=== PATIENT | male | born 1985 | race Caucasian/White ===

== ENCOUNTER 2022-03-04 15:42 | Emergency (ER) | payer BC, SELFPAY ==
[2022-03-04 16:10] VITALS: BP 168/96; PULSE 94; RESP 16; TEMP 36.7; O2SAT 99
[2022-03-04 16:16] LABS: Basophils Percent Auto 0.3 % (0.2-1.2); Eosinophils Absolute Auto 0.1 K/mm3 (0-0.3); Eosinophils Percent Auto 0.7 % (0-4.4); Hematocrit 40.1 % (42.0-52.0); Hemoglobin 13.4 g/dL (14.0-18.0); Immature Granulocyte Absolute 0.02 K/mm3 (0.00-0.031); Immature Granulocyte Percent A 0.2 % (0-0.5); Lymphocytes Percent Auto 16.4 % (18.3-44.2); Mean Corpuscular HGB Conc 33.4 g/dl (32-36); Mean Corpuscular Volume 89.7 fl (80-100); Mean Platelet Volume 10.6 fl (7.4-10.4); Monocytes Absolute Auto 0.7 K/mm3 (0.1-0.6); Monocytes Percent Auto 7.2 % (2.6-8.5); Neutrophils Absolute Auto 6.9 K/mm3 (1.3-6.7); Neutrophils Percent Auto 75.2 % (45.5-73.1); Platelet Count Result 239 k/mm3 (150-375); Red Blood Count 4.47 M/mm3 (4.6-6.20); Red Cell Distribution Width 12.4 % (11.5-14.5); White Blood Count 9.2 K/mm3 (4.5-10.0)
[2022-03-04 16:32] LABS: Alanine Aminotransferase 26 U/L (6-50); Albumin Level 4.6 g/dL (3.5-5.1); Alkaline Phosphatase 54 U/L (38-126); Anion Gap 11 mmol/L (8-16); Aspartate Amino Transferase 25 U/L (17-59); Bilirubin,Total 0.4 mg/dL (0.2-1.3); Blood Urea Nitrogen 17 mg/dL (9-20); Calcium 9.1 mg/dL (8.4-10.2); Carbon Dioxide 25 mmol/L (22-30); Chloride 102 mmol/L (98-107); Estimated CRCL calculation 120 ml/min; Estimated Glomerular Filt Rate > 60; Glucose 127 mg/dL (65-110); Potassium 4.2 mmol/L (3.4-5.0); Sodium 138 mmol/L (137-145)
--- NOTE | 2022-03-04 17:36 | ED.GENADULT ---
HPI - General Adult General Chief complaint: Back Pain/Injury Stated complaint: LEFT FLANK PAIN Time Seen by Provider: 03/04/22 17:23 History of Present Illness HPI narrative: 37-year-old male history of gouty arthritis presents to the emergency room for multiple complaints. Patient states that he began experiencing a painful rash to his left flank radiates around to his abdomen. Patient denies any injury or trauma. Denies any dysuria or urinary retention. No history of kidney stones. Patient also complaining of generalized swelling to his left ankle. Denies any known injury or trauma. Believes the swelling to his left ankle is due to gouty arthritis flare. Has been taking [id number] anti-inflammatories with minimal relief. Related Data Allergies Allergy/AdvReac Type Severity Reaction Status Date / Time No Known Allergies Allergy Verified 03/04/22 17:28 Review of Systems Review of Systems: CONSTITUTIONAL: Denies fever, chills, or sweats. EYES: Denies visual changes, redness, or discharge. ENT: Denies rhinorrhea, congestion, sore throat, or otalgia. CARDIOVASCULAR: Denies chest pain, palpitations, or edema. RESPIRATORY: Denies cough or dyspnea. GASTROINTESTINAL: Denies abdominal pain, nausea, vomiting, or diarrhea. GENITOURINARY: Denies dysuria or hematuria. SKIN: Reports rash to left flank MUSCULOSKELETAL: Reports swelling to left ankle NEUROLOGIC: Denies headache, numbness, dizziness, or weakness. PSYCHIATRIC: Denies anxiety or depression. Exam Narrative: GENERAL: Well-appearing, well-nourished, no physical limitations, and in no acute distress. HEAD: Normocephalic, atraumatic. EYES: Conjunctivae normal, PERRLA and EOMI. CHEST: Clear to auscultation. No respiratory distress. No wheezes rales or rhonchi. HEART: Regular rate and rhythm. No murmur heard. Normal peripheral pulses. ABDOMEN: Soft, nontender, nondistended, normal active bowel sounds. BACK: Left CVA tenderness EXTREMITIES: Left ankle: Diffuse nonpitting edema. Full range of motion. No bony abnormality. Neurovascular intact distally. SKIN: Erythematous papulovesicular rash to the left lumbar area extending into the flank following a dermatomal pattern NEURO: No focal deficits. Alert and oriented x3. MAEW. CN's II-XI intact bilaterally, normal gait PSYCH: Cooperative. Normal mood and affect. Course Vital Signs Vital signs: Vital Signs Temperature 36.7 C 03/04/22 16:10 Pulse Rate 94 03/04/22 16:10 Respiratory Rate 16 03/04/22 16:10 Blood Pressure 168/96 H 03/04/22 16:10 Pulse Oximetry 99 03/04/22 16:10 Temperature 36.7 C 03/04/22 16:10 Pulse Rate 94 03/04/22 16:10 Respiratory Rate 16 03/04/22 16:10 Blood Pressure 168/96 H 03/04/22 16:10 Pulse Oximetry 99 03/04/22 16:10 Medical Decision Making Vital Signs Vital Signs: Vital Signs Temperature 36.7 C 03/04/22 16:10 Pulse Rate 94 03/04/22 16:10 Respiratory Rate 16 03/04/22 16:10 Blood Pressure 168/96 H 03/04/22 16:10 Pulse Oximetry 99 03/04/22 16:10 Temperature 36.7 C 03/04/22 16:10 Pulse Rate 94 03/04/22 16:10 Respiratory Rate 16 03/04/22 16:10 Blood Pressure 168/96 H 03/04/22 16:10 Pulse Oximetry 99 03/04/22 16:10 Lab Data Result diagrams: 03/04/22 16:08 03/04/22 16:08 Labs: Lab Results 03/04/22 03/04/22 Range/Units 16:08 16:08 WBC 9.2 (4.5-10.0) K/mm3 RBC 4.47 L (4.6-6.20) M/mm3 Hgb 13.4 L (14.0-18.0) g/dL Hct 40.1 L (42.0-52.0) % MCV 89.7 (80-100) fl MCH 30.0 (26-34) pg MCHC 33.4 (32-36) g/dl RDW 12.4 (11.5-14.5) % Plt Count 239 (150-375) k/mm3 MPV 10.6 H (7.4-10.4) fl Immature Gran % (Auto) 0.2 (0-0.5) % Neut % (Auto) 75.2 H (45.5-73.1) % Lymph % (Auto) 16.4 L (18.3-44.2) % [place] % (Auto) 7.2 (2.6-8.5) % Eos % (Auto) 0.7 (0-4.4) % Baso % (Auto) 0.3 (0.2-1.2) % Lymph # (Auto) 1.50 (0.9-3.2) K/mm3 Mon
[2022-03-04 17:41] LABS: Appearance Urine Clear (Clear); Bilirubin Urine Negative (Negative); Blood Urine Negative (Negative); Color Urine Yellow (Yellow); Glucose Urine UA Negative (Negative); Ketones Urine Negative (Negative); Leukocyte Esterase Ur Negative LEU/UL (Negative); Nitrate Urine Negative (Negative); Protein Urine Negative (Negative); Urobilinogen Urine 0.2 mg/dL (<2.0)
[2022-03-04 17:45] LABS: Mucus Urine Rare /lpf; RBC Urine 0-2 /hpf (0-2); WBC Urine 0-3 /hpf
[2022-03-04 17:46] LABS: Add Urine Microscopic? NO
== END 2022-03-04 17:55 | disposition home or self-care (01) ==
LOC: ANHED 18:12
PROVIDERS: Emergency Medicine; Emergency Provider Nurse Practitioner Family
DX: B02.9 Zoster without complications (principal); M10.9 Gout, unspecified
CPT/HCPCS: 36415; 80053; 81003; 85025; 96372; 99283; J1100

== ENCOUNTER 2022-10-08 17:05 | Emergency (ER) | payer BC, SELFPAY ==
[2022-10-08 17:10] VITALS: BP 156/77; PULSE 79; RESP 15; TEMP 37.5; O2SAT 100
--- NOTE | 2022-10-08 17:30 | ED.GENADULT ---
HPI - General Adult General Chief complaint: Skin/Abscess/Foreign Body Stated complaint: back pain Time Seen by Provider: 10/08/22 17:23 Source: patient Mode of arrival: ambulatory Limitations: no limitations History of Present Illness HPI narrative: This is a 37-year-old male who presents to the ED with chief complaint of left-sided back pain and rash x3 days. States the pain has been present for the past 3 days but rash developed yesterday. He reports it is only on the left side of his back. Denies any further site of pain or rash. States that he had a shingles rash about a month ago in the right lower back. He took valacyclovir at that time and had great relief. He does note that he had tonsillitis recently and took amoxicillin for this. Otherwise no new medications or skin exposures. Denies fevers, chills. Related Data Allergies Allergy/AdvReac Type Severity Reaction Status Date / Time No Known Allergies Allergy Verified 03/04/22 17:28 Review of Systems Review of Systems: CONSTITUTIONAL: Denies fever, chills, or sweats. EYES: Denies visual changes, redness, or discharge. ENT: Denies rhinorrhea, congestion, sore throat, or otalgia. CARDIOVASCULAR: Denies chest pain, palpitations, or edema. RESPIRATORY: Denies cough or dyspnea. GASTROINTESTINAL: Denies abdominal pain, nausea, vomiting, or diarrhea. GENITOURINARY: Denies dysuria or hematuria. SKIN: See HPI MUSCULOSKELETAL: See HPI NEUROLOGIC: Denies headache, numbness, dizziness, or weakness. PSYCHIATRIC: Denies anxiety or depression. Exam Narrative: GENERAL: Well-appearing, well-nourished, and in no acute distress. HEAD: Normocephalic, atraumatic. EYES: PERRLA and EOMI. ENT: Nares clear, no rhinorrhea or epistaxis. Mucous membranes moist. Oropharynx without tonsillar hypertrophy exudate or other lesions. NECK: Supple. No adenopathy or masses. CHEST: No respiratory distress. Clear to auscultation. No wheezes rales or rhonchi HEART: Regular rate and rhythm. No murmur heard. Normal peripheral pulses. ABDOMEN: Soft, nontender, nondistended, normal active bowel sounds. MSK: No midline lumbar spinal tenderness. Normal range of motion. No edema. SKIN: Dermatomal rash to the left lower back. Minimal tenderness. No vesicles. NEURO: Alert and oriented x3. No focal deficits. PSYCH: Normal mood and affect. Course Vital Signs Vital signs: Vital Signs Temperature 99.5 F 10/08/22 17:10 Pulse Rate 79 10/08/22 17:10 Respiratory Rate 15 10/08/22 17:10 Blood Pressure 156/77 H 10/08/22 17:10 Pulse Oximetry 100 10/08/22 17:10 Oxygen Delivery Room Air 10/08/22 17:10 Temperature 99.5 F 10/08/22 17:10 Pulse Rate 79 10/08/22 17:10 Respiratory Rate 15 10/08/22 17:10 Blood Pressure 156/77 H 10/08/22 17:10 Pulse Oximetry 100 10/08/22 17:10 Oxygen Delivery Room Air 10/08/22 17:10 Medical Decision Making MDM Narrative Medical decision making narrative: This is a 37-year-old male who presents to the ED with chief complaint of left lower back pain followed by a dermatomal rash for 3 days. Vitals are stable. Exam shows evidence of shingles. He did have an episode last month and improved with Valtrex. prescribing valacyclovir again as he may be within the 72-hour window for possible treatment evaluation. Encouraged to follow-up with PCP regarding these repeated bouts of shingles. Instructed to use lidocaine patch, Tylenol, ibuprofen. Return precautions given. Patient is understanding and agreeable to plan for discharge and follow-up with PCP. Vital Signs Vital Signs: Vital Signs Temperature 99.5 F 10/08/22 17:10 Pulse Rate 79 10/08/22 17:10 Respiratory Rate 15 10/08/22 17:10 Blood Pressure 156/77 H 10/08/22 17:10 Pulse Oximetry 100 10/08/22 17:10 Oxygen Delivery Room Air 10/08/22 17:10 Temperature 99.5 F 10/08/22 17:10 Pulse Rate 79 10/08/22 17:10 Respiratory Rate 15 10/08/22 17:10
== END 2022-10-08 18:00 | disposition home or self-care (01) ==
LOC: ANHED 17:56
PROVIDERS: Emergency Provider Physician Assistant
DX: B02.9 Zoster without complications (principal)
CPT/HCPCS: 99283

== ENCOUNTER 2022-10-23 19:17 | Emergency (ER) | payer BC, SELFPAY ==
[2022-10-23 19:39] VITALS: BP 140/99; PULSE 94; RESP 19; TEMP 36.9; O2SAT 100
--- NOTE | 2022-10-23 19:58 | ED.GENADULT ---
HPI - General Adult General Chief complaint: Unspecified Stated complaint: gout pain in L foot Time Seen by Provider: 10/23/22 19:57 Source: patient Mode of arrival: ambulatory Limitations: no limitations History of Present Illness HPI narrative: Patient is 37 years old white male drove himself to the emergency room because of flareup of gouty arthritis of both feet 2 weeks ago. Patient received a course of prednisone with quite a bit of improvement of the right foot, left foot is not improving at the same rate of the right 1. sanitary napkin machine tender, slightly swollen. He denies any fever, chills, nausea, vomiting or recent trauma. Related Data Home Medications Medication Instructions Recorded Confirmed amoxicillin 875 mg tablet mg 10/23/22 amoxicillin 875 mg-potassium tablet 10/23/22 clavulanate 125 mg tablet Allergies Allergy/AdvReac Type Severity Reaction Status Date / Time No Known Allergies Allergy Verified 10/23/22 19:42 Review of Systems Review of Systems: All systems reviewed & are unremarkable except as noted in HPI and below Exam Narrative: General appearance: Well-developed, well-nourished Skin: Normal color Head: Normocephalic, nontraumatic Chest and respiratory: Airway patent, no respiratory distress, no accessory muscle use Heart: Regular rate/rhythm Vascular: Normal peripheral pulses, normal capillary refill. Musculoskeletal: Left foot showed diffuse tenderness dorsally, slight swelling of the left ankle with slight limited range of motion, diffuse tenderness of the left carpophalangeal joint of the first toe with slight redness dorsally. Neurologic: Alert and oriented ?3, [employer] OPERATOR is normal as tested, no gross motor deficit Course Vital Signs Vital signs: Vital Signs Temperature 36.9 C 10/23/22 19:39 Pulse Rate 94 10/23/22 19:39 Respiratory Rate 10/23/22 19:39 Blood Pressure 140/99 H 10/23/22 19:39 Pulse Oximetry 100 10/23/22 19:39 Oxygen Delivery Room Air 10/23/22 19:39 Temperature 36.9 C 10/23/22 19:39 Pulse Rate 94 10/23/22 19:39 Respiratory Rate 10/23/22 19:39 Blood Pressure 140/99 H 10/23/22 19:39 Pulse Oximetry 100 10/23/22 19:39 Oxygen Delivery Room Air 10/23/22 19:39 Medical Decision Making MDM Narrative Medical decision making narrative: Flareup of gouty arthritis is my concern. No imaging or labs are required at this time. Patient had numerous recurrent episodes similar to what he have right now. Patient is not on any medicine for chronic gouty arthritis at this time, scheduled to see his family physician next week. Indomethacin 75 mg p.o. x1, colchicine 1.6 mg p.o. x1. Patient was advised to rest his joints, avoid bearing weight and keep foot elevated. the pt was discharged to home.the pt,s condition upon discharge was fair,education was provided to the pt in reference to the final impression,discharge study results,treatment,prognosis and need for follow up .- Differential Diagnosis Differential Diagnosis: Acute gouty arthritis. Vital Signs Vital Signs: Vital Signs Temperature 36.9 C 10/23/22 19:39 Pulse Rate 94 10/23/22 19:39 Respiratory Rate 10/23/22 19:39 Blood Pressure 140/99 H 10/23/22 19:39 Pulse Oximetry 100 10/23/22 19:39 Oxygen Delivery Room Air 10/23/22 19:39 Temperature 36.9 C 10/23/22 19:39 Pulse Rate 94 10/23/22 19:39 Respiratory Rate 10/23/22 19:39 Blood Pressure 140/99 H 10/23/22 19:39 Pulse Oximetry 100 10/23/22 19:39 Oxygen Delivery Room Air 10/23/22 19:39 Critical Care Time Critical Care Time Critical Care Time: No Discharge Plan Discharge Clinical Impression:
[2022-10-23] MEDS: COLCHICINE 0.6 MG TABLET 1.2 MG PO (20:26)
[2022-10-23] MEDS: INDOMETHACIN 25 MG CAPSULE 75 MG PO (20:27)
== END 2022-10-23 20:28 | disposition home or self-care (01) ==
LOC: ANHED 20:13
PROVIDERS: Emergency Provider Emergency Medicine
DX: M10.9 Gout, unspecified (principal)
CPT/HCPCS: 99283; A9270